=== PATIENT | male | born 1940 | race Caucasian/White ===

== ENCOUNTER → 2017-01-22 | Outpatient (CLI) | payer OTHER ==
[2017-01-22 12:18] LABS: BILIRUBIN,URINE NEGATIVE (NEGATIVE); BLOOD/HEMOGLOBIN,URINE 1+ (NEGATIVE); GLUCOSE, URINE NEGATIVE (NEGATIVE); KETONES,URINE NEGATIVE (NEGATIVE); LEUKOCYTE ESTERASE ,URINE NEGATIVE (NEGATIVE); NITRITES,URINE NEGATIVE (NEGATIVE); PROTEIN,URINE 2+ (NEGATIVE); UROBILINOGEN,URINE NORMAL (NORMAL)
[2017-01-22 12:29] LABS: APPEARANCE,URINE CLEAR (CLEAR); BACTERIA,URINE TRACE /HPF (NEGATIVE); COLOR,URINE YELLOW (YELLOW); MUCUS,URINE FEW /HPF (NEGATIVE); RBC,URINE 0-1 /HPF (NEGATIVE); SQUAMOUS EPITHELIAL CELL,UR RARE /HPF (NEGATIVE)
[2017-01-22 12:31] LABS: ALANINE AMINOTRANSFERASE 29 Units/L (12-78); ALBUMIN 3.8 g/dL (3.4-5.0); ALKALINE PHOSPHATASE 64 Units/L (46-116); ASPARTATE AMINO TRANSFERASE 32 Units/L (15-37); BLOOD UREA NITROGEN 17 mg/dL (7-18); CARBON DIOXIDE 28.5 mmol/L (21-32); CHLORIDE 99 mmol/L (98-107); CREATININE 1.94 mg/dL (0.70-1.30); GLUCOSE 108 mg/dL (65-99); SODIUM 137 mmol/L (136-145); TOTAL PROTEIN 7.8 g/dL (6.4-8.2); eGFR BLACK RACES 43 (>60); eGFR NON BLACK RACES 36 (>60)
[2017-01-22 12:34] LABS: BASOPHILS % (AUTO) 0.4 % (0.2-1.0); EOSINOPHILS % (AUTO) 0.4 % (0.9-2.9); HEMATOCRIT 43.1 % (42.0-54.0); HEMOGLOBIN 14.9 g/dL (13.5-18.0); LYMPHOCYTES # (AUTO) 0.8 X10^3/uL (1.3-2.9); LYMPHOCYTES % (AUTO) 20.9 % (21.0-51.0); MEAN CORPUSCULAR HEMOGLOBIN 30.5 pg (27.0-34.0); MEAN CORPUSCULAR HGB CONC 34.5 g/dL (33.0-35.0); MEAN CORPUSCULAR VOLUME 88.6 fL (80.0-100.0); MEAN PLATELET VOLUME 7.8 fL (7.4-11.0); MONOCYTES # (AUTO) 0.4 x10^3/uL (0.3-0.8); MONOCYTES % (AUTO) 11.1 % (0.0-13.0); NEUTROPHILS # (AUTO) 2.7 x10^3/uL (2.2-4.8); NEUTROPHILS % (AUTO) 67.2 % (42.0-75.0); PLATELET COUNT 111 X10^3/uL (150.0-450.0); RED BLOOD COUNT 4.87 X10^6/uL (4.7-6.0); RED CELL DISTRIBUTION WIDTH 12.3 % (11.6-16.5)
[2017-01-22 13:14] LABS: ERYTHROCYTE SEDIMENTATION RATE 19 MM/HOUR (0-15)
--- NOTE | 2017-01-22 13:56 | CT ---
HISTORY: Fever anorexia weight loss Study: CT chest without contrast Comparison: None Technique: Axial non contrast images with coronal and sagittal reformats. Dose reduction procedures were used with MA/kv adjusted for body size. Intravenous contrast could not be administered due to t he patient's renal insufficiency. Findings: Examination of the mediastinum demonstrated no definite evidence for mediastinal masses, lymphadenop athy, or hilar lymphadenopathy. Coronary artery calcifications are present. There is a small hiatal hernia present. No pleural effusions are identified. No chest wall or axillary abnormality is identi fied. Those portions of the upper abdominal organs visualized were within normal limits with the exc eption of multiple tiny nonobstructing left renal calculi. Examination of the lung cardona demonstrat ed the lungs to be well inflated. Best visualized on series 4 axial image 23 is a slightly irregular left upper lobe pulmonary nodule measuring approximately 10 millimeters x 8.5 millimeters. Best vis ualized on series 4 axial image 49 and series 6 coronal image 28 is a 1.55 x 1.9 centimeter irregula r nodule abutting both the pleura and the fissure. Best visualized on series 4 axial image 53 and at series 6 coronal image 40 to is a 3rd irregular pulmonary nodule measuring 1.15 x 0.96 centimeters. Any or all of these nodules could represent primary lung neoplasm or metastatic foci. PET-CT is rec ommended for further evaluation. No areas of consolidation, alveolar infiltrates, peribronchial thic kening or bronchiectasis identified. IMPRESSION: 3 irregular parenchymal pulmonary nodule as described above in the right upper, right lower, and lef t lower lobes any or all of which could represent primary lung neoplasm or metastatic foci. PET-CT i s recommended for further evaluation. Reported By:
--- NOTE | 2017-01-22 14:07 | CT ---
HISTORY: Weight loss, anorexia, fever Study: CT abdomen pelvis without contrast Comparison: None Technique: Axial non contrast images with coronal and sagittal reformats. Dose reduction procedures were used with MA/kv adjusted for body size. Intravenous contrast could not be administered due to t he patient's renal insufficiency Findings: Irregular bilateral lower lobe lung nodules as previously described on the chest CT are again identi fied. The liver, spleen, adrenal glands, and pancreas are within normal limits to the limitations of an unenhanced examination. No opaque stones are present within the gallbladder. The kidneys are rhett bstructed. Bilateral nonobstructing renal calculi are present. A right renal cyst is present. No ure teral calculi are identified. Calcific atherosclerotic change is present in a nondilated abdominal a kentrell. No significant intraperitoneal or retroperitoneal lymphadenopathy is identified. There are no findings suggestive of diverticulitis or colitis. Examination of the pelvis demonstrates no evidence for pelvic masses, pelvic fluid, or pelvic lymphadenopathy. No bladder abnormality is identified. T he prostate is enlarged measuring 4.9 x 5.3 by 4.6 centimeters. No lytic or blastic skeletal lesions are identified. IMPRESSION: Bilateral nonobstructing renal calculi Bilateral lower lobe lung nodules as previously described on the chest CT. Neoplasm must be excluded . Prostatic enlargement Reported By:
== END ==
LOC: RAD 11:55
PROVIDERS: ATTEND Internal Medicine
DX: R53.81 Other malaise (principal); R50.9 Fever, unspecified; R63.0 Anorexia; R63.4 Abnormal weight loss; R91.8 Other nonspecific abnormal finding of lung field; N20.0 Calculus of kidney
CPT/HCPCS: 36415; 71250; 74176; 80053; 81001; 85025; 85652; 86140

== ENCOUNTER 2017-01-23 16:18 | Observation (INO) | payer OTHER ==
[2017-01-23] MEDS ORDERED: SALINE 3% 15 ML NEB TX ONE (18:01)
[2017-01-23] MEDS: NS 1000 ML 1,000 ML IV SCH (18:02)
[2017-01-23] MEDS ORDERED: SALINE 3% 15 ML NEB TX NEB ONE (18:07)
[2017-01-23 18:31] LABS: BASOPHILS % (AUTO) 0.8 % (0.2-1.0); EOSINOPHILS # (AUTO) 0.1 x10^3/uL (0.0-0.2); EOSINOPHILS % (AUTO) 1.8 % (0.9-2.9); HEMATOCRIT 41.9 % (42.0-54.0); HEMOGLOBIN 14.4 g/dL (13.5-18.0); LYMPHOCYTES # (AUTO) 1.1 X10^3/uL (1.3-2.9); LYMPHOCYTES % (AUTO) 26.8 % (21.0-51.0); MEAN CORPUSCULAR HEMOGLOBIN 30.2 pg (27.0-34.0); MEAN CORPUSCULAR HGB CONC 34.3 g/dL (33.0-35.0); MEAN CORPUSCULAR VOLUME 87.9 fL (80.0-100.0); MEAN PLATELET VOLUME 7.8 fL (7.4-11.0); MONOCYTES # (AUTO) 0.5 x10^3/uL (0.3-0.8); NEUTROPHILS # (AUTO) 2.4 x10^3/uL (2.2-4.8); NEUTROPHILS % (AUTO) 58.6 % (42.0-75.0); PLATELET COUNT 112 X10^3/uL (150.0-450.0); RED BLOOD COUNT 4.77 X10^6/uL (4.7-6.0); RED CELL DISTRIBUTION WIDTH 12.4 % (11.6-16.5); WHITE BLOOD COUNT 4.1 X10^3/uL (3.6-10.0)
[2017-01-23 18:53] LABS: ALANINE AMINOTRANSFERASE 47 Units/L (12-78); ALBUMIN 3.8 g/dL (3.4-5.0); ALKALINE PHOSPHATASE 83 Units/L (46-116); ASPARTATE AMINO TRANSFERASE 52 Units/L (15-37); BLOOD UREA NITROGEN 18 mg/dL (7-18); CARBON DIOXIDE 26.1 mmol/L (21-32); CHLORIDE 100 mmol/L (98-107); COR NA(FOR HYPERGLY) 138 mmol/L (136-145); CREATININE 1.78 mg/dL (0.70-1.30); GLUCOSE 112 mg/dL (65-99); SODIUM 138 mmol/L (136-145); TOTAL PROTEIN 8.1 g/dL (6.4-8.2); eGFR BLACK RACES 48 (>60); eGFR NON BLACK RACES 40 (>60)
[2017-01-23] MEDS: LEVAQUIN PREMIX IV 500 MG 500 MG/100 ML BAG IV SCH (19:05)
[2017-01-23 20:58] VITALS: BMI 22.8
[2017-01-23 20:59] LABS: BILIRUBIN,URINE NEGATIVE (NEGATIVE); BLOOD/HEMOGLOBIN,URINE 2+ (NEGATIVE); GLUCOSE, URINE NEGATIVE (NEGATIVE); KETONES,URINE NEGATIVE (NEGATIVE); LEUKOCYTE ESTERASE ,URINE NEGATIVE (NEGATIVE); NITRITES,URINE NEGATIVE (NEGATIVE); PH,URINE 6.5 (5.0 - 8.0); PROTEIN,URINE 2+ (NEGATIVE); UROBILINOGEN,URINE NORMAL (NORMAL)
[2017-01-23 21:14] LABS: APPEARANCE,URINE CLEAR (CLEAR); BACTERIA,URINE TRACE /HPF (NEGATIVE); COLOR,URINE YELLOW (YELLOW); RBC,URINE 0-3 /HPF (NEGATIVE); SQUAMOUS EPITHELIAL CELL,UR RARE /HPF (NEGATIVE)
[2017-01-23] MEDS ORDERED: FORTAZ or TAZICEF INJ ONE (22:08)
[2017-01-23] MEDS ORDERED: NS 50 ML IV 50 ML IV ONE (22:08)
[2017-01-23] MEDS: FORTAZ or TAZICEF INJ 2 GM in NS 50 ML IV + SPIKE MINIBAG* 50 ML IV SCH (22:24)
[2017-01-24] MEDS ORDERED: MAALOX or MYLANTA PO PRN (02:48)
[2017-01-24] MEDS: NS 1000 ML 1,000 ML IV SCH ×3 (05:14→16:32)
[2017-01-24 05:53] LABS: BASOPHILS % (AUTO) 0.6 % (0.2-1.0); EOSINOPHILS # (AUTO) 0.1 x10^3/uL (0.0-0.2); EOSINOPHILS % (AUTO) 1.9 % (0.9-2.9); HEMATOCRIT 38.8 % (42.0-54.0); HEMOGLOBIN 13.4 g/dL (13.5-18.0); LYMPHOCYTES # (AUTO) 1.3 X10^3/uL (1.3-2.9); LYMPHOCYTES % (AUTO) 23.3 % (21.0-51.0); MEAN CORPUSCULAR HEMOGLOBIN 30.3 pg (27.0-34.0); MEAN CORPUSCULAR HGB CONC 34.6 g/dL (33.0-35.0); MEAN CORPUSCULAR VOLUME 87.5 fL (80.0-100.0); MEAN PLATELET VOLUME 8.2 fL (7.4-11.0); MONOCYTES # (AUTO) 0.6 x10^3/uL (0.3-0.8); MONOCYTES % (AUTO) 11.4 % (0.0-13.0); NEUTROPHILS # (AUTO) 3.4 x10^3/uL (2.2-4.8); NEUTROPHILS % (AUTO) 62.8 % (42.0-75.0); PLATELET COUNT 110 X10^3/uL (150.0-450.0); RED BLOOD COUNT 4.43 X10^6/uL (4.7-6.0); RED CELL DISTRIBUTION WIDTH 12.3 % (11.6-16.5); WHITE BLOOD COUNT 5.4 X10^3/uL (3.6-10.0)
[2017-01-24 05:57] LABS: ALBUMIN 3.1 g/dL (3.4-5.0); CALCIUM 8.7 mg/dL (8.5-10.1); CARBON DIOXIDE 23.7 mmol/L (21-32); COR CA(FOR HYPOALB) 9.4 mg/dL (8.5-10.1); CREATININE 1.72 mg/dL (0.70-1.30); TOTAL PROTEIN 6.7 g/dL (6.4-8.2)
--- NOTE | 2017-01-24 06:18 | RAD ---
HISTORY: Fever Study: Chest two-view Comparison: CT chest January 22, 2017 Findings: The heart is within normal limits in size. The juanpablo are normal. The lungs are hyperinflated but free of acute alveolar infiltrates. The left apical pulmonary nodule visualized on CT is not visualized on plain film. The left lower lobe pulmonary nodule visualized on CT appears to overlie the cardiac apex on the PA film. And can be seen overlying the heart on the lateral film. The right lower lobe p ulmonary nodule visualized on CT is not identified on plain films. No alveolar infiltrates, pleural effusions are identified. The bony thorax is unremarkable. IMPRESSION: Nodular density overlying the cardiac apex and overlying the heart on the lateral view corresponding likely to the left lower lobe nodule noted on the chest CT. The left apical and right lower lobe pu lmonary nodules visible on CT are not well demonstrated on plain film. No acute infiltrates Reported By:
[2017-01-24] MEDS ORDERED: NS 50 ML IV 50 ML IV ONE (07:22)
[2017-01-24] MEDS ORDERED: FORTAZ or TAZICEF INJ ONE (07:22)
[2017-01-24] MEDS: FORTAZ or TAZICEF INJ 2 GM in NS 50 ML IV + SPIKE MINIBAG* 50 ML IV SCH (07:27)
[2017-01-24] MEDS: LEVAQUIN PREMIX IV 500 MG 500 MG/100 ML BAG IV SCH (09:00)
[2017-01-24] MEDS: FORTAZ or TAZICEF INJ 1 GM in NS 50 ML IV + SPIKE MINIBAG* 50 ML IV SCH ×2 (11:37→21:07)
[2017-01-24] MEDS ORDERED: MIRALAX POWDER (1 DOSE 17GM) PO PRN (13:34)
[2017-01-25] MEDS: NS 1000 ML 1,000 ML IV SCH ×2 (02:08→09:09)
[2017-01-25] MEDS ORDERED: TYLENOL 325 MG TAB PO PRN (05:45)
[2017-01-25 06:20] LABS: BASOPHILS % (AUTO) 0.4 % (0.2-1.0); EOSINOPHILS # (AUTO) 0.1 x10^3/uL (0.0-0.2); EOSINOPHILS % (AUTO) 2.6 % (0.9-2.9); HEMATOCRIT 37.5 % (42.0-54.0); HEMOGLOBIN 13.3 g/dL (13.5-18.0); LYMPHOCYTES # (AUTO) 1.3 X10^3/uL (1.3-2.9); LYMPHOCYTES % (AUTO) 25.1 % (21.0-51.0); MEAN CORPUSCULAR HGB CONC 35.5 g/dL (33.0-35.0); MEAN CORPUSCULAR VOLUME 87.3 fL (80.0-100.0); MEAN PLATELET VOLUME 8.3 fL (7.4-11.0); MONOCYTES # (AUTO) 0.6 x10^3/uL (0.3-0.8); MONOCYTES % (AUTO) 11.8 % (0.0-13.0); NEUTROPHILS # (AUTO) 3.2 x10^3/uL (2.2-4.8); NEUTROPHILS % (AUTO) 60.1 % (42.0-75.0); PLATELET COUNT 121 X10^3/uL (150.0-450.0); RED BLOOD COUNT 4.29 X10^6/uL (4.7-6.0); RED CELL DISTRIBUTION WIDTH 12.3 % (11.6-16.5); WHITE BLOOD COUNT 5.3 X10^3/uL (3.6-10.0)
[2017-01-25 06:37] LABS: ALBUMIN 3.1 g/dL (3.4-5.0); CALCIUM 8.6 mg/dL (8.5-10.1); CARBON DIOXIDE 24.8 mmol/L (21-32); COR CA(FOR HYPOALB) 9.3 mg/dL (8.5-10.1); CREATININE 1.57 mg/dL (0.70-1.30); TOTAL PROTEIN 6.7 g/dL (6.4-8.2)
[2017-01-25] MEDS: LEVAQUIN PREMIX IV 500 MG 500 MG/100 ML BAG IV SCH (09:09)
[2017-01-25] MEDS: FORTAZ or TAZICEF INJ 1 GM in NS 50 ML IV + SPIKE MINIBAG* 50 ML IV SCH (09:09)
[2017-01-25 12:11] VITALS: BP 138/76
[2017-01-28 10:11] LABS: ANTI-NUCLEAR ANTIBODY TEST None Detected (None Detected); CMV IGM ANTIBODY <8.0 AU/mL (<=29.9)
--- NOTE | 2017-02-13 10:38 | PCM.PROG ---
Progress Note - Progress Note for Day of Date: 01/24/17 - Subjective Subjective: The patient is a 76yo male who was admitted secondary to Fever. Was on Cipro as OP. Patient states feels better today. - Past Medical Family Social History Past Med/Fam/Surg Hx: No changes since H&P Allergies: Allergies No Known Drug Allergy Allergy (Verified 01/23/17 17:58) - Review of Systems ROS: No change since H&P - Vital Signs and I&O's Vital Signs: Temperature 98.0 F Pulse Rate [Left Brachial] 70 Respiratory Rate 18 Blood Pressure [Right Arm] 147/84 Blood Pressure [Left Arm] 138/76 O2 Sat by Pulse Oximetry 95 - Physical Exam Oriented: Normal Eyes: Normal Ear: Normal Nose: Normal Throat: Normal Respiratory: Normal Cardiovascular: Normal, Irregular Auscultation: Bowel Sounds: Normal Palpation: Normal Tenderness: Normal Skin: Normal Musculoskeletal: Normal Psychiatric: Normal Mood Description: Calm Affect: Normal Speech Pattern: Clear, Appropriate - Laboratory and Diagnostics Result Diagrams: 01/25/17 04:00 01/25/17 04:00 Labs: 01/23/17 18:07 Blood Blood Culture - Final 01/23/17 18:10 Blood Blood Culture - Final Laboratory WBC 5.3 X10^3/uL (3.6-10.0) 01/25/17 04:00 RBC 4.29 X10^6/uL (4.7-6.0) L 01/25/17 04:00 Hgb 13.3 g/dL (13.5-18.0) L 01/25/17 04:00 Hct 37.5 % (42.0-54.0) L 01/25/17 04:00 MCV 87.3 fL (80.0-100.0) 01/25/17 04:00 MCH 31.0 pg (27.0-34.0) 01/25/17 04:00 MCHC 35.5 g/dL (33.0-35.0) H 01/25/17 04:00 RDW 12.3 % (11.6-16.5) 01/25/17 04:00 Plt Count 121 X10^3/uL (150.0-450.0) L 01/25/17 04:00 MPV 8.3 fL (7.4-11.0) 01/25/17 04:00 Neut % 60.1 % (42.0-75.0) 01/25/17 04:00 Lymph % 25.1 % (21.0-51.0) 01/25/17 04:00 [place] % 11.8 % (0.0-13.0) 01/25/17 04:00 Eos % 2.6 % (0.9-2.9) 01/25/17 04:00 Baso % 0.4 % (0.2-1.0) 01/25/17 04:00 Neut # 3.2 x10^3/uL (2.2-4.8) 01/25/17 04:00 Lymph # 1.3 X10^3/uL (1.3-2.9) 01/25/17 04:00 [place] # 0.6 x10^3/uL (0.3-0.8) 01/25/17 04:00 Eos # 0.1 x10^3/uL (0.0-0.2) 01/25/17 04:00 Baso # 0.0 X10^3/uL (0.0-0.1) 01/25/17 04:00 Absolute Nucleated RBC 0.1 /100WBC 01/25/17 04:00 Smear Path Review See note 01/23/17 18:07 Sodium 142 mmol/L (136-145) 01/25/17 04:00 Corrected Sodium 142 mmol/L (136-145) 01/25/17 04:00 Potassium 4.2 mmol/L (3.5-5.1) 01/25/17 04:00 Chloride 107 mmol/L (98-107) 01/25/17 04:00 Carbon Dioxide 24.8 mmol/L (21-32) 01/25/17 04:00 BUN 18 mg/dL (7-18) 01/25/17 04:00 Creatinine 1.57 mg/dL (0.70-1.30) H 01/25/17 04:00 Est GFR (MDRD) Af Amer 56 (>60) L 01/25/17 04:00 Est GFR (MDRD) Non-Af 46 (>60) L 01/25/17 04:00 Glucose 115 mg/dL (65-99) H 01/25/17 04:00 Calcium 8.6 mg/dL (8.5-10.1) 01/25/17 04:00 Corrected Calcium 9.3 mg/dL (8.5-10.1) 01/25/17 04:00 Total Bilirubin 0.40 mg/dL (0.2-1.0) 01/25/17 04:00 AST 49 Units/L (15-37) H 01/25/17 04:00 ALT 50 Units/L (12-78) 01/25/17 04:00 Alkaline Phosphatase 82 Units/L (46-116) 01/25/17 04:00 Total Protein 6.7 g/dL (6.4-8.2) 01/25/17 04:00 Albumin 3.1 g/dL (3.4-5.0) L 01/25/17 04:00 Globulin 3.6 g/dL (2.5-4.5) 01/25/17 04:00 Albumin/Globulin Ratio 0.9 Ratio (1.1-2.1) L 01/25/17 04:00 Specimen Type Clean catch urine 01/23/17 20:50 Urine Color Yellow (YELLOW) 01/23/17 20:50 Urine Appearance Clear (CLEAR) 01/23/17 20:50 Urine pH 6.5 (5.0 - 8.0) 01/23/17 20:50 Ur Specific [place] 1.010 (1.000-1.030) 01/23/17 20:50 Urine Protein 2+ (NEGATIVE) 01/23/17 20:50 Urine Glucose (UA) Negative (NEGATIVE) 01/23/17 20:50 Urine Ketones Negative (NEGATIVE) 01/23/17 20:50 Urine Occult Blood 2+ (NEGATIVE) 01/23/17 20:50 Urine Nitrite Negative (NEGATIVE) 01/23/17 20:50 Urine Bilirubin Negative (NEGATIVE) 01/23/17 20:50 Urine Urobilinogen Normal (NORMAL) 01/23/17 20:50 Ur Leukocyte Esterase Negative (NEGATIVE) 01/23/17 20:50 Urine RBC 0-3 /HPF (NEGATIVE) 01/23/17 20:50 Urine WBC None seen /HPF (NEGATIVE) 01/23/17 20:50 Ur Squamous Epith Cells Rare /HPF (NEGATIVE) 01/23/17 20:50 Urine Bacteria Trace /HPF (NEGATIVE) 01/23/17 20:50 Ur Culture Indicated? No/not indicated 01/23/17 20:50 AUTUMN Screen None detected (None Detected) 01/23/17 18:07 AUTUMN Titer TNP 01/23/17 18:07 AUTUMN Pattern TNP 01/23/17 18:07 RPR Nonreactive (NONREACTIVE) 01/23/17 18:07 Borrelia (PCR) Not detected 01/23/17 18:07 [facility] 01/23/17 18:07 CMV IgG Ab 6.50 U/mL 01/23/17 18:07 CMV IgM Ab <8.0 AU/mL (<=29.9) 01/23/17 18:07 HIV-1 RNA copies/mL <20 cpy/mL 01/23/17 18:07 HIV-1 RNA (PCR) log10 <1.3 log 01/23/17 18:07 HIV-1 RNA (PCR) Interp Not detected (Not Detected) 01/23/17 18:07 - Plan (1) [id number] kidney injury Status: Acute Qualifiers: Acute renal failure type: A Chronic kidney disease stage: C Plan: IV Hydration, Antibiotics, monitor labs (2) Dehydration Status: Acute (3) Fever Status: Acute Qualifiers: Fever type: F Encounter type: E Plan: Labs and antibiotics
--- NOTE | 2017-02-13 10:41 | PCM.DCPLAN ---
Discharge Summary - Admission Date Date of Admission: 01/23/17 - Discharge Date Discharge Date: 01/25/17 - Admission Diagnoses (1) Aread-su-[id number] kidney injury Status: Acute (2) Dehydration Status: Acute (3) Fever Status: Acute - Discharge Diagnoses Discharge Diagnosis: SAME ADMISSION DIAGNOSIS - Discharge Medications Discharge Medications: Aspirin [ASPIRIN 81 MG CHEWTAB *] 1 tab PO DAILY 01/23/17 [History] Ciprofloxacin HCl [CIPRO 500 MG TAB *] 500 mg PO Q12H 01/23/17 [History] Polyethylene Glycol Pwd Ud [MIRALAX POWDER (17 GM DOSE) *] 17 gm PO PRN PRN 08/02 [History] Levofloxacin [Levaquin Tab 500 mg] 500 mg PO Q24H #7 tab 01/25/17 [Rx] - Hospital Course Vital Signs: Temperature 98.0 F Pulse Rate [Left Brachial] 70 Respiratory Rate 18 Blood Pressure [Right Arm] 147/84 Blood Pressure [Left Arm] 138/76 O2 Sat by Pulse Oximetry 95 Latest Lab Results: Laboratory Last Values WBC 5.3 X10^3/uL (3.6-10.0) 01/25/17 04:00 RBC 4.29 X10^6/uL (4.7-6.0) L 01/25/17 04:00 Hgb 13.3 g/dL (13.5-18.0) L 01/25/17 04:00 Hct 37.5 % (42.0-54.0) L 01/25/17 04:00 MCV 87.3 fL (80.0-100.0) 01/25/17 04:00 MCH 31.0 pg (27.0-34.0) 01/25/17 04:00 MCHC 35.5 g/dL (33.0-35.0) H 01/25/17 04:00 RDW 12.3 % (11.6-16.5) 01/25/17 04:00 Plt Count 121 X10^3/uL (150.0-450.0) L 01/25/17 04:00 MPV 8.3 fL (7.4-11.0) 01/25/17 04:00 Neut % 60.1 % (42.0-75.0) 01/25/17 04:00 Lymph % 25.1 % (21.0-51.0) 01/25/17 04:00 [place] % 11.8 % (0.0-13.0) 01/25/17 04:00 Eos % 2.6 % (0.9-2.9) 01/25/17 04:00 Baso % 0.4 % (0.2-1.0) 01/25/17 04:00 Neut # 3.2 x10^3/uL (2.2-4.8) 01/25/17 04:00 Lymph # 1.3 X10^3/uL (1.3-2.9) 01/25/17 04:00 [place] # 0.6 x10^3/uL (0.3-0.8) 01/25/17 04:00 Eos # 0.1 x10^3/uL (0.0-0.2) 01/25/17 04:00 Baso # 0.0 X10^3/uL (0.0-0.1) 01/25/17 04:00 Absolute Nucleated RBC 0.1 /100WBC 01/25/17 04:00 Smear Path Review See note 01/23/17 18:07 Sodium 142 mmol/L (136-145) 01/25/17 04:00 Corrected Sodium 142 mmol/L (136-145) 01/25/17 04:00 Potassium 4.2 mmol/L (3.5-5.1) 01/25/17 04:00 Chloride 107 mmol/L (98-107) 01/25/17 04:00 Carbon Dioxide 24.8 mmol/L (21-32) 01/25/17 04:00 BUN 18 mg/dL (7-18) 01/25/17 04:00 Creatinine 1.57 mg/dL (0.70-1.30) H 01/25/17 04:00 Est GFR (MDRD) Af Amer 56 (>60) L 01/25/17 04:00 Est GFR (MDRD) Non-Af 46 (>60) L 01/25/17 04:00 Glucose 115 mg/dL (65-99) H 01/25/17 04:00 Calcium 8.6 mg/dL (8.5-10.1) 01/25/17 04:00 Corrected Calcium 9.3 mg/dL (8.5-10.1) 01/25/17 04:00 Total Bilirubin 0.40 mg/dL (0.2-1.0) 01/25/17 04:00 AST 49 Units/L (15-37) H 01/25/17 04:00 ALT 50 Units/L (12-78) 01/25/17 04:00 Alkaline Phosphatase 82 Units/L (46-116) 01/25/17 04:00 Total Protein 6.7 g/dL (6.4-8.2) 01/25/17 04:00 Albumin 3.1 g/dL (3.4-5.0) L 01/25/17 04:00 Globulin 3.6 g/dL (2.5-4.5) 01/25/17 04:00 Albumin/Globulin Ratio 0.9 Ratio (1.1-2.1) L 01/25/17 04:00 Specimen Type Clean catch urine 01/23/17 20:50 Urine Color Yellow (YELLOW) 01/23/17 20:50 Urine Appearance Clear (CLEAR) 01/23/17 20:50 Urine pH 6.5 (5.0 - 8.0) 01/23/17 20:50 Ur Specific [place] 1.010 (1.000-1.030) 01/23/17 20:50 Urine Protein 2+ (NEGATIVE) 01/23/17 20:50 Urine Glucose (UA) Negative (NEGATIVE) 01/23/17 20:50 Urine Ketones Negative (NEGATIVE) 01/23/17 20:50 Urine Occult Blood 2+ (NEGATIVE) 01/23/17 20:50 Urine Nitrite Negative (NEGATIVE) 01/23/17 20:50 Urine Bilirubin Negative (NEGATIVE) 01/23/17 20:50 Urine Urobilinogen Normal (NORMAL) 01/23/17 20:50 Ur Leukocyte Esterase Negative (NEGATIVE) 01/23/17 20:50 Urine RBC 0-3 /HPF (NEGATIVE) 01/23/17 20:50 Urine WBC None seen /HPF (NEGATIVE) 01/23/17 20:50 Ur Squamous Epith Cells Rare /HPF (NEGATIVE) 01/23/17 20:50 Urine Bacteria Trace /HPF (NEGATIVE) 01/23/17 20:50 Ur Culture Indicated? No/not indicated 01/23/17 20:50 AUTUMN Screen None detected (None Detected) 01/23/17 18:07 AUTUMN Titer TNP 01/23/17 18:07 AUTUMN Pattern TNP 01/23/17 18:07 RPR Nonreactive (NONREACTIVE) 01/23/17 18:07 Borrelia (PCR) Not detected 01/23/17 18:07 B.burgdorferi DNA [facility] Serum 01/23/17 18:07 CMV IgG Ab 6.50 U/mL 01/23/17 18:07 CMV IgM Ab <8.0 AU/mL (<=29.9) 01/23/17 18:07 HIV-1 RNA copies/mL <20 cpy/mL 01/23/17 18:07 HIV-1 RNA (PCR) log10 <1.3 log 01/23/17 18:07 HIV-1 RNA (PCR) Interp Not detected (Not Detected) 01/23/17 18:07 Hospital Course: The patient was admitted with fever 102F range. Patient had been on PO Cipro without improvement. Patient was admitted for further evaluation. Patient was noted to have elevated BUN/ CR.Patient was placed on IV antibiotics and given IV hydration. Patient had negative blood cultures. Patient was discharged home to be followed on OP basis. - Discharge Plan Disposition: 01 HOME, SELF-CARE Condition: Stable Prescriptions: Levofloxacin [Levaquin Tab 500 mg] 500 mg PO Q24H #7 tab - Follow ups/Referrals Follow ups/Referrals: SUJATA BREEN [Nurse Practitioner] - 02/01/17 9:40 am - Instructions Instructions: Acute Kidney Injury, Levofloxacin tablets, Dehydration, Elderly, [id number], Fever, Adult, [id number] Additional Instructions: DR. GO IS GETTING IN TOUCH WITH DR. HARMON AND WILL HAVE HIS OFFICE TO CALL YOUR HOME TO SET UP AN APPOINTMENT TO SEE YOU IN HIS OFFICE. PLEASE TAKE THE COPY OF THE CT REPORT AND ALSO A WRITTEN COPY OF THE READING WITH YOU WHEN YOU GO TO THE APPOINTMENT. Forms: Patient Portal
== END 2017-01-25 12:05 | disposition home or self-care (01) ==
LOC: MED/SURG 16:18
PROVIDERS: ADMIT Internal Medicine; ATTEND Internal Medicine
DX: N17.8 Other acute kidney failure (principal); R50.9 Fever, unspecified; E86.0 Dehydration; R53.83 Other fatigue; R91.1 Solitary pulmonary nodule; R94.4 Abnormal results of kidney function studies; R74.8 Abnormal levels of other serum enzymes; N18.9 Chronic kidney disease, unspecified
CPT/HCPCS: 36415; 71020; 80053; 81001; 85025; 85060; 86308; 86592; 86644; 86645; 87040; 87476; 87536; 94640; 94760; A4216; A4222; G0378; J0713; J1956

== ENCOUNTER → 2017-03-06 | Outpatient (CLI) | payer OTHER ==
[~2017-03-06] MED LIST: NS 100 ML IV 0 ML IV ONE
[2017-03-06 08:25] LABS: CREATININE 1.67 mg/dL (0.70-1.30)
--- NOTE | 2017-03-06 12:40 | CT ---
HISTORY: Followup of abnormal CT chest from January of 2017. Study: CT chest without contrast Comparison: CT chest dated January 22, 2017. Technique: Multiple axial images of the chest were obtained from the thoracic inlet to the upper abd omen without the administration of IV contrast. Dose reduction techniques including Automated Expos ure Control (AEC) and adjustment of mA and kV were utilized. Findings: The mediastinum does not demonstrate significant pathological lymphadenopathy. There is no paracard ial effusion observed. The thoracic aorta is normal in its contour without evidence for aneurysmal dilatation. Moderate atherosclerotic vascular calcifications of the coronary arteries appear unchan ged. 8 x 6 mm left upper lobe pulmonary nodule (previously measured 9 x 10 mm) series 4, image 19. Left l ower lobe 12 x 10 mm pulmonary nodule (previously measured 19 x 21 mm) series 4, image 43 right uppe r lobe scarring versus atelectasis. Posterior/medial right lower lobe 6 x 4 mm pulmonary nodule (pre viously measured 10 x 12 mm) series 4, image 46. No new pulmonary nodules, pleural effusion, or foca l consolidation. 3.9 cm right inferior renal pole simple appearing cyst and 2.1 cm left inferior bandar al pole simple appearing cyst appear unchanged. Multiple nonobstructing left renal nephroliths. Othe rwise, the upper abdomen demonstrates a normal noncontrast appearance. The osseous structures appear unchanged. IMPRESSION: 1. Bilateral pulmonary nodules that have decreased in size from the prior exam. No new pulmonary no dules or associated lymphadenopathy. Recommend followup CT of the chest in 2-[address] ability/resolution. Again, recommend PET-CT if not already obtained. 2. Other chronic findings as above. Reported By:
== END ==
LOC: RAD 07:54
PROVIDERS: ATTEND Internal Medicine
DX: R50.9 Fever, unspecified (principal); R07.89 Other chest pain; R91.1 Solitary pulmonary nodule
CPT/HCPCS: 36415; 71250; 82565; 84520

== ENCOUNTER → 2017-07-01 | Outpatient (CLI) | payer OTHER ==
--- NOTE | 2017-07-03 08:46 | CT ---
HISTORY: Pulmonary nodule Study: CT chest without contrast Comparison: 03/06/2017 Technique: Multiple axial images of the chest were obtained from the thoracic inlet to the upper abdo men without the administration of IV contrast. Dose reduction techniques including automated exposure control (AEC) and adjustment of mA and kV were utilized. Findings: Scattered subcentimeter lymph nodes are noted within the mediastinum. Evaluation of the mediastinum, hilar regions, and vascular structures is limited without IV contrast. Atherosclerotic changes are se en within the visualized coronary arteries and aorta. There is no pericardial effusion observed. An approximate 6 mm nodular opacity is seen within the left upper lobe on image 15 of series 4 compared to 8 mm on prior exam. An approximate 7 mm nodular opacity is seen within the left lower lobe on imag e 43 of series 4 compared to 1.2 cm on prior study. An approximate 3 mm nodular opacity is seen withi n the right lower lobe on image 45 of series 4 and measures 6 mm on prior study. An approximate 2 mm nodular opacity is seen within the left lung on image 29 of series 4 and has not significantly change d. A small hiatal hernia is again noted. Bilateral renal cysts renal calculi are again demonstrated a s well. IMPRESSION: 1. Bilateral pulmonary nodules which have decreased in size or have not enlarged since prior study a s discussed above. Recommend continued follow-up for further evaluation. Reported By:
== END | disposition home or self-care (01) ==
LOC: RAD 13:45
PROVIDERS: ATTEND Internal Medicine Sleep Medicine
DX: R91.1 Solitary pulmonary nodule (principal); R91.8 Other nonspecific abnormal finding of lung field
CPT/HCPCS: 71250

== ENCOUNTER → 2017-12-30 | Outpatient (CLI) | payer OTHER ==
--- NOTE | 2017-12-30 15:30 | CT ---
Indication: Solitary pulmonary nodule follow-up. Exam: CT chest without contrast. Technique: Axial spiral images were obtained from the level above the clavicles through the adrenals without contrast. Coronal and sagittal multiplanar reconstructions were performed. Automated does con trol was utilized. Comparison: CT chest 07/01/2017 Findings: The thyroid gland is unremarkable. There is mild plaque in the aorta which is normal calibe r and unchanged. There small lymph nodes in the AP window and pretracheal region measuring up to 6 mm which are unchanged . There are moderate coronary artery calcifications which are unchanged. The adr enals are normal . There is a partially visualized cyst along the lower pole left kidney which is unc hanged . There are 2 mm stone along the upper poles of both kidneys which are unchanged . No hydronep hrosis is seen. There is mild pleural thickening and scarring along the apices. There is some hazy gr ound-glass fibrosis along the right lung base posteriorly which is unchanged. There is a 4-5 mm nodul e along the superior segment left lower lobe , along the fissure which is unchanged. There is a 7 mm nodule along the left lung base anteriorly which is unchanged. There are tiny subpleural nodules scat tered along the lung bases anterolaterally which are unchanged. There is a 3 mm pleural-based nodule right lower lobe laterally which is unchanged. No consolidation or effusion is seen. The bones are in tact. Impression: Right basilar fibrosis and scarring and small pulmonary nodules in both lungs which are unchanged wit h no new nodules seen. No acute infiltrate or effusion is seen. Suggest continued follow-up to assure long-term stability. Small lymph nodes in the mediastinum which are unchanged or less prominent. Coronary artery calcifications which are unchanged. Reported By:
== END ==
LOC: RAD 13:44
PROVIDERS: ATTEND Internal Medicine Sleep Medicine
DX: R91.1 Solitary pulmonary nodule (principal)
CPT/HCPCS: 71250